=== PATIENT | female | born 1980 | race American Indian/Alaskan Native ===

== ENCOUNTER 2020-10-14 14:39 | Outpatient (CLI) | payer OTHER ==
--- NOTE | 2020-10-14 16:24 | Mammography Report ---
LEFT DIGITAL DIAGNOSTIC MAMMOGRAM WITH CAD WITH TOMOSYNTHESIS, 10/14/2020 LEFT LIMITED BREAST ULTRASOUND CLINICAL INFORMATION / INDICATION: Known left breast cancer, follow-up TECHNIQUE: Digital left mammographic imaging was performed. Limited ultrasound was performed. This ex amination was interpreted with the benefit of Computer-Aided Detection (CAD) analysis. COMPARISON: Report from outside study of 06/09/2020 has been reviewed as has biopsy pathology report, images are unavailable FINDINGS: Breast Density: There are scattered areas of fibroglandular density. MAMMOGRAPHIC FINDINGS: The previously described huge mass in the upper outer quadrant, anterior to mi d depth, is again seen with a contained biopsy clip. This mass has a maximal diameter of 8.4 cm which is larger than the described 6 cm in May. A tiny nodule is seen just inferior and medial to this l esion measuring 5 mm, by 1 cm, likely a small satellite lesion. No other breast lesions are seen. Views of the axillae show no significant abnormalities with only tiny nodes noted. ULTRASOUND FINDINGS: Targeted ultrasound evaluation was performed of the area of interest. The large mass with contained biopsy clip is seen. This measures at least 6.3 cm though is difficult to measure due to the size. A large cystic component is noted with specular floating internal echoes. This cyst ic component measures approximately 3.8 cm. No additional lesions are seen. The small probable satell ite lesion is not identified. Views of the axilla show what is probably a clip from the previous x-ra y biopsy but no enlarged nodes are seen. IMPRESSION: Known malignant mass is seen with solid and cystic components. There probably is a tiny c losely adjacent satellite lesion. Follow up recommendation: Routine yearly BI-RADS Category 6: Known Biopsy-Proven Malignancy. A "normal" or negative report should not discourage follow up or biopsy of a clinically significant f inding. A written summary of these findings will be mailed to the patient. The patient will be entered into a mammography reporting system which will generate a reminder letter for the patient's next appointmen t at the appropriate interval. According to the [employer], yearly mammograms are recommended starting at age 40 and continuing as long as a woman is in good health. Breast MRI is recommended for women with an ajay roximately 20-25% or greater lifetime risk of breast cancer, including women with a strong family his tory of breast or ovarian cancer and women who have been treated for Hodgkin's disease. Signer Name: Jerald Cantu MD Signed: 10/14/2020 4:19 PM Workstation Name: [id number]
== END 2020-10-14 14:40 | disposition home or self-care (01) ==
LOC: SPVWC 14:39
PROVIDERS: ATTEND Surgery
DX: C50.012 Malignant neoplasm of nipple and areola, left female breast (principal); N64.89 Other specified disorders of breast
CPT/HCPCS: 76642; 77065; G0279

== ENCOUNTER 2020-11-03 09:13 | Outpatient (CLI) | payer OTHER | END 2020-11-03 09:14 | disposition home or self-care (01) | LOC: LABHHL 09:13 | PROVIDERS: ATTEND Surgery | DX: N60.02 Solitary cyst of left breast (principal) | CPT/HCPCS: 88112; 88305 ==

== ENCOUNTER 2021-12-22 06:15 | Day surgery (SDC) | payer OTHER ==
[2021-12-22] MEDS ORDERED: SODIUM CHLORIDE 0.9% 1000 ML 1,000 ML IV SCH (07:00)
[2021-12-22 07:14] LABS: Hematocrit 28.5 % (30.3-42.9); Hemoglobin 9.3 gm/dl (10.1-14.3); Mean Corpuscular HGB Conc 33 % (30-34); Mean Corpuscular Volume 91 fl (79-97); Platelet Count 196 K/mm3 (140-440); Red Blood Count 3.13 M/mm3 (3.65-5.03)
[2021-12-22 07:25] LABS: INR 1.21 (0.87-1.13)
[2021-12-22 07:26] LABS: Partial Thromboplastin Time 32.5 Sec. (24.2-36.6)
[2021-12-22 07:28] LABS: Blood Urea Nitrogen 10 mg/dL (7-17)
[2021-12-22 07:33] LABS: Red Cell Distribution Width 22.6 % (13.2-15.2)
[2021-12-22 07:35] LABS: Calcium 8.7 mg/dL (8.4-10.2); Hemolysis Index 0
--- NOTE | 2021-12-22 07:40 | Anesthesia Consultation ---
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
[2021-12-22 07:42] LABS: BUN/Creatinine Ratio 14
--- NOTE | 2021-12-22 07:50 | Anesthesia Day of Surgery ---
Anesthesia Day of Surgery - Day of Surgery Patient Examined: Yes Patient H&P Reviewed: Yes Patient is NPO: Yes
[2021-12-22] MEDS ORDERED: HYDROmorphone 1 MG/1 ML INJ ONE (07:55)
[2021-12-22] MEDS ORDERED: MIDAZOLAM 2 MG/2 ML INJ ONE (07:55)
[2021-12-22] MEDS ORDERED: LIDOCAINE MPF (2%) 20 MG/1 ML VIAL 5 ML ONE (07:55)
[2021-12-22] MEDS ORDERED: HEPARIN/NS 5000 UNIT/500ML 500 ML IR ONE (09:06)
[2021-12-22] MEDS ORDERED: LIDOCAINE 1%/EPINEPHRINE 1:100,000 VIAL (20 ML) INFILTRATI ONE (09:07)
[2021-12-22] MEDS ORDERED: HEPARIN 10,000 UNITS/10 ML VIAL ONE (09:14)
[2021-12-22 09:15] LABS: Anisocytosis 1+; Hypochromasia 1+; Ovalocytes 1+; Platelet Estimate Consistent w Auto; Total Cells Counted 50
[2021-12-22] MEDS ORDERED: ceFAZolin/Water 2 GM/20 ML 2 GM/20 ML SYRINGE IV ONE (10:39)
--- NOTE | 2021-12-22 11:02 | Short Stay Summary ---
Short Stay Documentation Date of service: 12/22/21 - History Principal diagnosis: Port malfunction, SVC syndrome H&P: obtained from office - Allergies and Medications Current Medications: Allergies No Known Allergies Allergy (Verified 12/22/21 06:48) Home Medications Medication Instructions Recorded Confirmed Last Taken Type Apixaban [Eliquis] 5 mg PO BID 12/22/21 12/22/21 12/22/21 History OLANzapine [ZyPREXA] 5 mg PO QDAY 12/22/21 12/22/21 12/17/21 History dexAMETHasone [Dexamethasone] 4 mg PO DAILY 12/22/21 12/22/21 12/16/21 History Active Medications Sodium Chloride (Nacl 0.9% 1000 Ml) 1,000 mls @ 42 mls/hr IV DIRECT ELOINA Last Admin: 12/22/21 08:24 Dose: 42 mls/hr - Brief post op/procedure progress note Date of procedure: 12/22/21 Pre-op diagnosis: Port malfunction, SVC syndrome Post-op diagnosis: same Procedure: See operative report Anesthesia: MAC Surgeon: KASSIDY HANCOCK Estimated blood loss: 50-100ml Pathology: none Condition: stable - Disposition Condition at discharge: Good Disposition: 01 HOME / SELF CARE / HOMELESS Short Stay Discharge Plan Activity: advance as tolerated Weight Bearing Status: Weight Bear as Tolerated Diet: regular Wound: keep clean and dry, per your surgeon's advice (Pressure dressing on until tomorrow morning) Follow up with: PRIMARY CARE, [Primary Care Provider] - 7 Days
--- NOTE | 2021-12-22 11:14 | Operative Report ---
Operative Report Operative Report: Exam: Port exchange under fluoroscopy, venoplasty of SVC and Clinical indication patient with a history of SVC syndrome and port malfunction Date: 12/22/2021 Procedure: Following an explanation of the risk, benefits and alternatives; written informed consent was obtained. The patient was brought to the ang iographic suite and placed in supine position on the examination table. Following the induction of anesthesia, the patient was prepped and draped in usual sterile fashion. Initial fluoroscopic images demonstrated that the catheter tip appears to be at the SVC atrial junction. To present lidocaine was used at the port pocket. The pocket was entered using a combination of sharp and blunt dissection and the port removed with the tubing partially withdrawn. Contrast was then injected in the tubing which demonstrates that the tip of the catheter is in the occluded portion of the SVC. A 0.035 guidewire was then advanced under fluoroscopy through the tubing into the IVC. The tubing was then removed intact. Initial attempts to place an 8 Georgian sheath over the guidewire into the SVC in the neck or unsuccessful. Serial dilation was performed using a 4 mm x 40 mm balloon at the venotomy site and along the tract. Additional dilation was performed using 8 mm and 9 mm dilators and ultimately, a 6 Georgian 23 cm sheath was advanced to position the tip in the SVC. Contrast was injected. This demonstrates that the SVC is occluded for approximately 2 to 3 cm. There is brisk drainage through the large collateral. The azygos vein is the dominant drainage of the head and neck and upper extremities. Dilation of the SVC was then performed using a 6 mm 120 mm balloon insufflated to 2 iam for 2 minutes. Post dilation imaging demonstrates flow through the now SVC into the right atrium as well as persistent collateral flow. At this point, decision was made to exchange the catheter tubing as the patient will need serial dilation of the SVC. At this point, the new port catheter tubing was measured using the vertebral catheter and cut to length. The catheter tube was inserted over the guidewire. This would not pass easily and additional dilation of the tract was performed using the 6 mm balloon insufflated to less than 1 iam to dilate the scar tissue proximal to the IJ. Following dilation, the catheter tubing was then advanced and positioned in the distal right atrium. Blunt dissection was then used to enlarge the port pocket. This resulted in a bleeding from a chest wall collateral. Pressure was immediately held in the chest wall collateral occluded. Several 3-0 Vicryl sutures were then used on the medial aspect of the port site and within the port pocket towards the medial aspect to occlude the chest wall collateral. Following suturing, no additional bleeding was identified. No hematoma on the chest wall was identified. The port tubing was then connected to the port following shortening of the port tubing to allow it to rest in the proximal right atrium. The port was then inserted into the port pocket. The incision was closed using a combination of subcuticular and subcutaneous 3-0 Vicryl suture and 4-0 Monocryl suture. Dermabond and Steri-Strips were applied. A pressure dressing was then also applied over the port. The patient tolerated the procedure well. A sedation was provided by anesthesia services. Continuous cardiopulmonary monitoring was utilized. Impression: 1) Removal of indwelling port from right chest wall. 2) Venogram demonstrating occlusion of the SVC for approximately 2 to 3 cm above the right atrium. Drainage is through the azygous vein and large collaterals branching into the paraspinal veins. 3) Venoplasty as the SVC using a 6 mm x 120 mm balloon. 4) Enlargement of the port pocket with bleeding from the chest wall collateral. 5) Closure of the chest wall collateral using 3-0 Vicryl suture. 6) Insertion of a new Bard single-lumen PowerPort with the tip ultimately resting in the proximal right atrium. 7) The patient will need to return to clinic for serial dilation of the SVC from a femoral approach.
--- NOTE | 2021-12-22 14:12 | Post Anesthesia Evaluation ---
- Post Anesthesia Evaluation Patient Participated: Yes Airway Patent: Yes Stable Respiratory Function: Yes Nausea/Vomiting: No Temp > 96.8F: Yes Pain Manageable: Yes Adequeate Hydration: Yes Anesthesia Complications: No Block Receding Appropriately: Not Applicable Patient on Ventilator: No
[2021-12-22 14:18] VITALS: BP 129/81
== END 2021-12-22 15:10 | disposition home or self-care (01) ==
LOC: CATHLABREC 06:15
PROVIDERS: ATTEND Radiology Diagnostic Radiology
DX: T82.598A Other mechanical complication of other cardiac and vascular devices and implants, initial encounter (principal); I87.1 Compression of vein; I10 Essential (primary) hypertension; E66.9 Obesity, unspecified; D64.9 Anemia, unspecified; Z79.899 Other long term (current) drug therapy; Z85.3 Personal history of malignant neoplasm of breast; Z90.12 Acquired absence of left breast and nipple; Z98.890 Other specified postprocedural states; Y92.89 Other specified places as the place of occurrence of the external cause; Y82.8 Other medical devices associated with adverse incidents
CPT/HCPCS: 36415; 36582; 37248; 80048; 85025; 85610; 85730; C1725; C1751; C1769; C1788; C1894; J0690; J1170; J1644; J2250; J2704; J3490; J7030; 36561; 36590; 85007; Q9967